=== PATIENT | male | born 1975 | race African-American/Black ===

== ENCOUNTER 2019-08-13 10:09 | Observation (INO) ==
[2019-08-13] MEDS ORDERED: chlorproMAZINE INJ 25 MG in SODIUM CHLORIDE 0.9% 100 ML IV STA (10:53)
[2019-08-13 11:17] LABS: Basophils % 0.4 % (0.0-0.8); Hematocrit 55.3 VOL% (42.0-52.0); Hemoglobin 18.2 GM/DL (14.0-18.0); Immature Granulocytes % 0.4 %; Immature Granulocytes Absolute 0.03 #; Lymphocytes # 0.7 10*3/uL (1.4-4.0); Lymphocytes % 10.1 % (21.2-54.2); Mean Corpuscular HGB Conc 32.9 GM/DL (32-36); Mean Corpuscular Volume 82.8 FL (87-102); Mean Platelet Volume 9.8 FL (9.6-12.0); Monocytes % 5.7 % (1.7-12.7); Neutrophils % 83.4 % (38.7-73.9); Platelet Count 334 T/CUMM (130-400); Red Blood Count 6.68 MC/CUMM (3.8-5.5); Red Cell Distribution Width 14.5 % (9.3-17.3); White Blood Count 7.3 T/CUMM (4-12)
[2019-08-13] MEDS ORDERED: chlorproMAZINE 25 MG/1 ML AMP IM ONE (11:30)
[2019-08-13 11:34] LABS: Apearance,Urine CLEAR (Clear); Bilirubin,Urine Negative (Negative); Blood, Urine Negative (Negative); Glucose,Urine (UA) Negative (Negative); Hyaline Casts,Urine 4 /LPF (0-3); Ketones,Urine 20 mg/dL (Negative); Mucus,Urine Moderate /LPF (Occasional); Nitrite,Urine Negative (Negative); Protein,Urine 30 MG/DL; RBC,Urine 1 /HPF (0-4); Urine Color Amber (Yellow); Urine Specific Gravity 1.021 (1.001-1.035); WBC,Urine <1 /HPF (0-6)
[2019-08-13 11:35] LABS: Alanine Aminotransferase 27 U/L (16-61); Albumin 4.1 G/DL (3.4-5.0); Alkaline Phosphatase 82 U/L (45-117); Aspartate Amino Transferase 10 U/L (0-37); Blood Urea Nitrogen 16 MG/DL (7-18); Calcium 10.1 MG/DL (8.5-10.1); Estimated Glom Filtration Rate 98 ML/MIN; Glucose 96 MG/DL (74-106); Osmolality,Calculated 290.6 MOS/KG (273-304); Total Protein 8.1 G/DL (6.4-8.3)
[2019-08-13] MEDS ORDERED: SODIUM CHLORIDE 0.9% 1,000 ML IV STA ×2 (11:35→12:58)
[2019-08-13] MEDS ORDERED: ONDANSETRON 4 MG/2 ML VIAL IV PRN (12:44)
[2019-08-13] MEDS ORDERED: PROMETHAZINE 25 MG/1 ML VIAL IV PRN (12:44)
[2019-08-13 13:10] LABS: Barbiturates Screen,Urine Negative (Negative); Benzodiazepines Screen,Urine Negative (Negative); Cannabinoid Screen,Urine Negative (Negative); Opiate Screen,Urine Negative (Negative); Phencyclidine Screen,Urine Negative (Negative)
[2019-08-13] MEDS ORDERED: SCOPOLAMINE 1.5 MG PATCH TRANSDERM SCH (13:30)
[2019-08-13] MEDS ORDERED: INFLUENZA VIRUS VACCINE 0.5 ML SYRINGE IM ONE (14:43)
[2019-08-13] MEDS ORDERED: FLUCONAZOLE INJ 200 MG in PREMIX 1 EACH IV SCH (15:00)
[2019-08-13 15:28] LABS: HIV Antigen/Antibody Result Nonreactive (Nonreactive)
[2019-08-13] MEDS: SODIUM CHLORIDE 0.9% 1,000 ML IV SCH (17:34)
[2019-08-13] MEDS: NYSTATIN 500,000 UNIT/5 ML UDCUP SWISH/SWAL SCH ×2 (17:40→21:12)
[2019-08-13 18:31] LABS: Hepatitis B Core IgM Quant 0.64 Index; Hepatitis B Surface Ag Quant 0.13 Index; Hepatitis B Surface Ag Result Negative (Negative); Hepatitis C Virus Ab Quant 0.03 Index; Hepatitis C Virus Ab Result Negative (Negative)
[2019-08-13] MEDS: PANTOPRAZOLE 40 MG TABLET PO SCH ×2 (21:12→21:16)
[2019-08-14] MEDS: SODIUM CHLORIDE 0.9% 1,000 ML IV SCH (01:45)
[2019-08-14 02:59] LABS: Basophils % 0.5 % (0.0-0.8); Eosinophils # 0.1 10*3/uL (0.0-0.87); Eosinophils % 0.8 % (0.00-10.9); Hematocrit 41.8 VOL% (42.0-52.0); Hemoglobin 13.8 GM/DL (14.0-18.0); Immature Granulocytes % 0.3 %; Immature Granulocytes Absolute 0.02 #; Lymphocytes # 1.6 10*3/uL (1.4-4.0); Lymphocytes % 26.7 % (21.2-54.2); Mean Corpuscular Volume 82.9 FL (87-102); Mean Platelet Volume 9.9 FL (9.6-12.0); Monocytes % 8.4 % (1.7-12.7); Neutrophils % 63.3 % (38.7-73.9); Platelet Count 259 T/CUMM (130-400); Red Blood Count 5.04 MC/CUMM (3.8-5.5); Red Cell Distribution Width 13.6 % (9.3-17.3); White Blood Count 6.1 T/CUMM (4-12)
[2019-08-14 03:29] LABS: Albumin 3.1 G/DL (3.4-5.0); Bilirubin,Total 1.1 MG/DL (0.2-1.0); Calcium 9.2 MG/DL (8.5-10.1); Osmolality,Calculated 297.9 MOS/KG (273-304); Risk Ratio 3.44; Thyroid Stimulating Hormone 0.279 uIU/ml (0.358-3.74); Total Protein 5.7 G/DL (6.4-8.3); VLDL CHOLESTEROL 17.4 MG/DL
[2019-08-14] MEDS: PANTOPRAZOLE 40 MG TABLET PO SCH (07:15)
[2019-08-14] MEDS ORDERED: PANTOPRAZOLE 40 MG VIAL IV SCH (09:00)
[2019-08-14] MEDS ORDERED: POTASSIUM CHLORIDE 20 MEQ/15 ML UDCUP PO ONE (11:28)
[2019-08-14 13:15] VITALS: BP 141/89
[2019-08-17 15:36] LABS: QuantiFERON-Tb Gold Pl Negative (Negative); TB2 Ag Minus Result 0 IU/mL
== END 2019-08-14 10:35 | disposition home or self-care (01) ==
LOC: EDUNIT# → N.ED 10:09 → N.EDINP 10:09 → N.2W 14:08
PROVIDERS: ADMIT Internal Medicine; ATTEND Internal Medicine